=== PATIENT | male | born 1945 | race Caucasian/White ===

== ENCOUNTER 2016-04-01 07:53 | Day surgery (SDC) | payer MEDICARE, OTHER ==
[2016-04-01] MEDS ORDERED: LACTATED RINGERS 1,000 ML IV ONE (08:19)
[2016-04-01] MEDS ORDERED: fentaNYL 250 MCG/5 ML VIAL IVP ONE (08:58)
[2016-04-01] MEDS ORDERED: MIDAZOLAM 2 MG/2 ML VIAL IVP ONE (08:58)
[2016-04-01] MEDS ORDERED: SIMETHICONE 40 MG/0.6 ML 30 ML BOTTLE PO ONE (08:59)
== END 2016-04-01 07:54 | disposition home or self-care (01) ==
PROC: 0DJD8ZZ Inspection of Lower Intestinal Tract, Via Natural or Artificial Opening Endoscopic (ICD-10-PCS; principal; 2016-04-01 09:15)
DX: Z12.11 Encounter for screening for malignant neoplasm of colon (principal); Z79.82 Long term (current) use of aspirin; K64.8 Other hemorrhoids; K57.30 Diverticulosis of large intestine without perforation or abscess without bleeding; E78.5 Hyperlipidemia, unspecified; I10 Essential (primary) hypertension; Z87.891 Personal history of nicotine dependence
CPT/HCPCS: A9270; G0121; J3010; J7120

== ENCOUNTER 2016-05-31 17:54 | Emergency (ER) | payer MEDICARE, OTHER ==
[2016-05-31] MEDS ORDERED: oxyCOD/ACETAMIN 5 MG/325 MG TABLET PO STA (18:50)
[2016-05-31] MEDS ORDERED: oxyCOD/ACETAMIN 5 MG/325 MG TABLET PO ONE (19:22)
[2016-05-31] MEDS ORDERED: HYDROcod/ACET 5/325 Prepack 6 PO STA (20:08)
[2016-05-31] MEDS ORDERED: ONDANSETRON ODT 4 MG Prepack 2 TL PRN (20:08)
[2016-05-31] MEDS ORDERED: ONDANSETRON ODT 4 MG Prepack 2 TL ONE (20:15)
[2016-05-31] MEDS ORDERED: HYDROcod/ACET 5/325 Prepack 6 PO ONE (20:15)
== END 2016-05-31 21:27 | disposition home or self-care (01) ==
DX: S82.832A Other fracture of upper and lower end of left fibula, initial encounter for closed fracture (principal); S82.392A Other fracture of lower end of left tibia, initial encounter for closed fracture; W01.198A Fall on same level from slipping, tripping and stumbling with subsequent striking against other object, initial encounter; Y92.89 Other specified places as the place of occurrence of the external cause; R03.0 Elevated blood-pressure reading, without diagnosis of hypertension; I10 Essential (primary) hypertension; E78.5 Hyperlipidemia, unspecified; Z79.82 Long term (current) use of aspirin
CPT/HCPCS: 29505; 73590; 99283; 99284; A9270

== ENCOUNTER 2016-06-07 06:05 | Day surgery (SDC) | payer MEDICARE, OTHER ==
[2016-06-07] MEDS ORDERED: LACTATED RINGERS 1,000 ML IV ONE (06:56)
[2016-06-07] MEDS ORDERED: ceFAZolin 2 GM/50 ML 50 ML IV ONE (07:04)
[2016-06-07] MEDS ORDERED: KETAMINE 500 MG/10 ML VIAL IVP ONE (08:30)
[2016-06-07] MEDS ORDERED: GLYCOPYRROLATE 1 MG/5 ML VIAL IVP ONE (08:30)
[2016-06-07] MEDS ORDERED: MIDAZOLAM 2 MG/2 ML VIAL IVP ONE (08:30)
[2016-06-07] MEDS ORDERED: ePHEDrine 50 MG/ML VIAL IVP ONE (08:30)
[2016-06-07] MEDS ORDERED: DEXAMETHASONE 4 MG/ML VIAL IVP ONE (08:30)
[2016-06-07] MEDS ORDERED: fentaNYL 100 MCG/2 ML VIAL IVP ONE (08:30)
[2016-06-07] MEDS ORDERED: ONDANSETRON 4 MG/2 ML VIAL IVP ONE (08:30)
[2016-06-07] MEDS ORDERED: PROPOFOL 200 MG/20 ML VIAL IVP ONE (08:30)
[2016-06-07] MEDS ORDERED: PHENYLEPHRINE 50 MG/5 ML VIAL IV ONE (08:30)
[2016-06-07] MEDS ORDERED: LIDOCAINE-MPF 2% 5 ML VIAL IM ONE (08:30)
[2016-06-07] MEDS ORDERED: BUPIVACAINE 0.25%-EPI 1:200000 PF 10 ML VIAL SUBQ ONE ×2 (09:14→10:30)
--- NOTE | 2016-06-07 11:14 | XRAY Report ---
INTRAOPERATIVE LEFT LOWER LE06/07/2016 CLINICAL INDICATION: Fracture fixation. FINDINGS: Intraoperative imaging demonstrates sideplate and screw fixation of the spiral fracture of the distal tibia, with improved alignment. 39 seconds of fluoroscopy time was provided to Dr. Harvey; 4 spot images obtained. IMPRESSION: INTRAOPERATIVE IMAGING OF LEFT TIBIAL FRACTURE FIXATION. JOB #: [id number] EXT JOB #:[id number]
[2016-06-07 13:13] VITALS: BP 144/77
--- NOTE | 2016-06-09 10:13 | XRAY Report ---
C-[facility] SERVICES: 06/07/2016 Fluoroscopy time only, no images submitted for interpretation. Fluoroscopy time 0 minutes, 39 seconds. [facility]
--- NOTE | 2016-06-25 18:14 | OPERATIVE REPORT ---
DATE OF SURGERY: 06/07/2016 00:00:00 PREOPERATIVE DIAGNOSIS: Left distal tibia/fibula fracture, closed, displaced. POSTOPERATIVE DIAGNOSIS: Left distal tibia/fibula fracture, closed, displaced. NAME OF PROCEDURE: Open reduction and internal fixation (minimally invasive percutaneous osteosynthe sis) of a left distal tibia fracture. SURGEON: Joe Harvey MD. NEWS ANCHOR: None. ANESTHESIA: General endotracheal. SPONGE AND NEEDLE COUNTS: Correct. MATERIAL TO LABORATORY: None. FINDINGS: Same. FLUIDS: 1000 mL of lactated Ringer's. COMPLICATIONS: None. TOURNIQUET: Left thigh at 275 mmHg x110 minutes without complication. ESTIMATED BLOOD LOSS: 20 mL. SPECIMEN REMOVED AND CULTURES: None. DISPOSITION: PACU, then home. CONDITION AT THE END OF PROCEDURE: Stable. IMPLANTS: Agueda distal medial locking plate with appropriate screws. INDICATIONS: The patient is a 70-year-old very active male who sustained a comminuted left distal tib ia and associated Maisonneuve type fracture of the proximal fibula when he tripped and fell on a kassy ler hitch on his boat, catching his leg between the trailer hitch spars, causing a bending moment to his leg resulting in a fracture. He was brought to the emergency room, where radiographs revealed a c omminuted distal tibia fracture with an associated proximal fibular fracture. He was placed in a long leg stirrup splint and told to go home and elevate and ice his leg and was referred to the orthopedi c surgery clinic. On evaluation in the clinic, he was noted to have an operative distal tibia fractur e. We discussed options including attempt at intramedullary nailing, but because of the comminution e xtending almost down to the ankle joint, we felt that it was more appropriate to attempt a minimally invasive percutaneous osteosynthesis with a medial plate. This was discussed extensively with the melissa carbone and his . He agreed to surgery. PROCEDURE IN DETAIL: After consent and identification, the patient was brought to the operating room and placed in the supine position on the operating table. After induction of a general endotracheal a nesthesia and appropriate monitoring, the left lower extremity was placed on a bone foam bump. The bu mp was placed underneath the left hip to internally rotate the leg slightly. A padded tourniquet was placed to the proximal left thigh. The left lower extremity was then prepped and draped in the usual sterile fashion for lower extremity surgery. After an appropriate timeout was conducted, we mapped out a medial incision at the level of the media l malleolus, extending from 2 cm distal to the tip of the medial malleolus, proximally a total of 8 c m. This allowed exposure of the distal tibia at the level of the medius malleolus with digital explor ation able to palpate the tip of the fracture. Under fluoroscopic guidance, we made a percutaneous st ab wound with a #15 blade scalpel at the level of the proximal portion of the spiral fracture and use d a Sanchez [id number] clamp to effect a reduction. We then used a periosteal elevator to create a tunnel underneath the periosteum on the medial side of the tibia to create a channel for the long ske letal fixation locking plate. This plate was slid up along the medial side of the tibia. The position was verified with AP and lateral fluoroscopy. AP and lateral fluoroscopy was then used to guide the placement of a single screw through a stab woun d in the middle of the plate to hold the shaft fragment near the plate. A single 3.5 cortical screw w as placed at that level in a lag technique. Verifying that the reduction was adequate on both the AP and lateral planes, we then used the inserti on towers to place a total of 5 locking screws in the distal portion of the plate proximal to the ginger nt line. A fixed screw was placed just proximal to the We then placed a single locking screw across the spiral portion of the fracture in a lag technique. Widely spaced screws were then applied to the proximal portion of the plate x3. Stab wounds were used for the insertion of these screws. On completion of our fixation, the wounds were thoroughly irrigated. Wounds were closed with interrup nereyda 2-0 Vicryl subcuticular sutures. Running 3-0 Monocryl sutures were used to the dermis. Incision s ites were injected with a total of 10 mL of 0.5% Marcaine with epinephrine. Steri-Strips and Mastisol were applied followed by Xeroform gauze and a circumferential sterile dressing of 4 x 4's, cast padd ing and Ruperto bandage from the toes to the knee. On completion of the procedure, the patient was placed in a Cam boot. The tourniquet was deflated without complication. The patient was then extubated and transferred to the recovery room in good condition having tolerate d the procedure well. JOB #: [id number] EXT JOB #:[id number]
== END 2016-06-07 06:06 | disposition home or self-care (01) ==
LOC: SDS 06:05
PROVIDERS: ATTEND Orthopaedic Surgery
PROC: 0QSH04Z Reposition Left Tibia with Internal Fixation Device, Open Approach (ICD-10-PCS; principal; 2016-06-07 07:30)
DX: S82.232A Displaced oblique fracture of shaft of left tibia, initial encounter for closed fracture (principal); S82.832A Other fracture of upper and lower end of left fibula, initial encounter for closed fracture; Z87.891 Personal history of nicotine dependence; I10 Essential (primary) hypertension; I49.9 Cardiac arrhythmia, unspecified
CPT/HCPCS: 27827; 73590; J0690; J7120

== ENCOUNTER 2016-07-20 09:14 | Emergency (ER) | payer MEDICARE, OTHER ==
--- NOTE | 2016-07-20 09:43 | ED Physician Documentation ---
History of Present Illness - Stated complaint Stated Complaint: KNEE SWELLING,REDNESS,PAIN - Chief complaint Chief Complaint: Ext Problem - Additonal information Additional information: hx from pt very healthy 70 male had ortho surgery proximal tibia 5/2 recovered well, had a fracture blister which was treated with topical antibiotic and seemed to heal 3 days ago noticed small amt eyrthema to medial leg over incision seen by Dr Harvey, rec NSAIDS and close observation redness and swelling are much worse and he is having inc pain as well as chills and sweats Review of Systems Constitutional: reports: Chills, Sweats Cardiac: denies: Chest pain / pressure Respiratory: denies: Dyspnea, Cough GI: denies: Abdominal Pain Skin: reports: Rash Musculoskeletal: reports: Extremity pain, Extremity swelling Endocrine: denies: Easy bruising / bleeding Immunocompromised: denies: Immunocompromised PD PAST MEDICAL HISTORY - Past Medical History Cardiovascular: Hypertension, High cholesterol Respiratory: None Endocrine/Autoimmune: None GI: Other : None HEENT: None Psych: None Musculoskeletal: None Derm: None - Past Surgical History General: Cholecystectomy, Colonoscopy, Other Ortho: Hip replacement - Present Medications Home Medications: Ambulatory Orders Medication Instructions Recorded Confirmed Aspirin [Aspir-Low] 81 mg PO DAILY 04/01/16 07/20/16 Hydrochlorothiazide 25 mg PO DAILY 06/06/16 07/20/16 Telmisartan [Micardis] 80 mg PO DAILY 06/06/16 07/20/16 Cephalexin [Keflex] 500 mg PO Q6H #28 capsule 07/20/16 Sulfamethox/Trimeth 800/160 1 each PO BID #14 tablet 07/20/16 [Bactrim Ds 800/160] amLODIPine [Norvasc] 10 mg PO DAILY 07/20/16 07/20/16 - Allergies Allergies/Adverse Reactions: Allergies Allergy/AdvReac Type Severity Reaction Status Date / Time No Known Drug Allergies Allergy Verified 07/20/16 09:20 - Social History Does the pt smoke?: No Smoking Status: Never smoker PD ED PE NORMAL - Vitals Vital signs reviewed: Yes (tachy) - General General: Alert and oriented X 3 - Neck Neck: Supple, no meningeal sign - Cardiac Cardiac: RRR - Respiratory Respiratory: No respiratory distress, Clear bilaterally - Extremities Extremities: Other (LLE surigcial incision to medial lower leg, eryteha and edema and TTP surrounding incision, no specific calf TTP, no dehisc or dicharge , no bullae necrosis or crepitus, MSV intact) - Neuro Neuro: Alert and oriented X 3, No motor deficit, No sensory deficit Results - Vitals Vitals: Vital Signs - 24 hr 07/20/16 07/20/16 09:18 12:12 Temperature 36.3 C L 37.0 C Heart Rate 113 H 67 Respiratory 18 18 Rate Blood Pressure 153/101 H 126/77 O2 Saturation 97 95 Oxygen O2 Source Room air - Labs Labs: Laboratory Tests 07/20/16 07/20/16 07/20/16 10:01 10:01 10:01 WBC 8.9 RBC 4.59 L Hgb 14.1 Hct 41.0 L MCV 89.3 MCH 30.8 MCHC 34.5 RDW 13.2 Plt Count 240 MPV 7.3 L Neut # 6.9 H Lymph # 1.1 L [place] # 0.7 Eos # 0.1 Baso # 0.1 Absolute Nucleated RBC 0.00 Nucleated RBCs 0.0 ESR Sodium 139 Potassium 3.8 Chloride 98 L Carbon Dioxide 28 Anion Gap 13.0 BUN 16 Creatinine 0.8 Estimated GFR (MDRD) 96 Glucose 117 H Lactic Acid 1.0 Calcium 9.7 C-Reactive Protein 11.5 H 07/20/16 10:01 WBC RBC Hgb Hct MCV MCH MCHC RDW Plt Count MPV Neut # Lymph # [place] # Eos # Baso # Absolute Nucleated RBC Nucleated RBCs ESR 38 H Sodium Potassium Chloride Carbon Dioxide Anion Gap BUN Creatinine Estimated GFR (MDRD) Glucose Lactic Acid Calcium C-Reactive Protein - Rads (name of study) doppler Radiology: See rad report (no DVT) RLE Radiology: See rad report (subcut edema, trace fluid, no discreet fluid collection, no gas) PD MEDICAL DECISION MAKING - ED course ED course: d/w pts weapons specialist Dr Harvey who recommends dc on keflex and bactrim and he will see pt in clinic on Friday Departure - Departure Disposition: Home, Self Care Clinical Impression: Cellulitis of left anterior lower leg Condition: Good Instructions: ED Infec Skin Cellulitis Follow-Up: Joe Harvey MD [Provider Admit Priv/Credential] - Prescriptions: Sulfamethox/Trimeth 800/160 [Bactrim Ds 800/160] 1 each PO BID #14 tablet Cephalexin [Keflex] 500 mg PO Q6H #28 capsule Comments: Please come back and see me tomorrow to recheck both the infection and the chemistry labs Dr Harvey wants you on the antibiotic bactrim but it can potentially interact with your blood pressure medication and cause high potassium levels - so i would like you to hold your Micardis while you are taking the Bactrim and I would like to recheck you tomorrow - hopefully it will be a much faster visit than today Otherwise Dr Harvey will see you on Friday for a recheck And if at any point you get worse (fevers, expanding redness, increasing pain) please come back to the ER right away
[2016-07-20] MEDS ORDERED: ceFAZolin 1 GM in SODIUM CHLORIDE 0.9% MINIBAG 100 ML IV STA (10:03)
[2016-07-20 10:13] LABS: BASOPHILS # (AUTO) 0.1 10^3/uL (0.0-0.1); BASOPHILS % (AUTO) 0.7 %; EOSINOPHILS # (AUTO) 0.1 10^3/uL (0.0-0.7); EOSINOPHILS % (AUTO) 1.6 %; HGB - HEMOGLOBIN 14.1 g/dL (14.0-18.0); LYMPHOCYTES # (AUTO) 1.1 10^3/uL (1.5-3.5); LYMPHOCYTES % (AUTO) 11.9 %; MEAN CORPUSCULAR HEMOGLOBIN 30.8 pg (27.0-31.0); MEAN CORPUSCULAR HGB CONC 34.5 g/dL (32.0-36.0); MEAN CORPUSCULAR VOLUME 89.3 fL (80.0-94.0); MEAN PLATELET VOLUME 7.3 fL (7.4-11.4); MONOCYTES # (AUTO) 0.7 10^3/uL (0.0-1.0); MONOCYTES % (AUTO) 7.6 %; NEUTROPHILS # (AUTO) 6.9 10^3/uL (1.5-6.6); NEUTROPHILS % (AUTO) 78.2 %; RED BLOOD COUNT 4.59 10^6/uL (4.70-6.10); RED CELL DISTRIBUTION WIDTH 13.2 % (12.0-15.0); UNCORRECTED WHITE BLOOD COUNT 8.9 x10^3/uL; WHITE BLOOD COUNT 8.9 x10^3/uL (4.8-10.8)
[2016-07-20 10:26] LABS: CALCIUM 9.7 mg/dL (8.5-10.3); CREATININE 0.8 mg/dL (0.6-1.2); POTASSIUM 3.8 mmol/L (3.5-5.0)
[2016-07-20] MEDS ORDERED: ceFAZolin 1 GM VIAL ONE (10:31)
--- NOTE | 2016-07-20 12:25 | Ultrasound Preliminary Report ---
Exam: US Duplex Ext Veins Left IMPRESSION: No sonographic evidence of DVT within the left lower extremity. [facility] SITE ID: [id number]
--- NOTE | 2016-07-20 12:27 | Ultrasound Preliminary Report ---
Exam: US Ext Limited Non Vascular IMPRESSION: 1. Subcutaneous soft tissue edema and trace fluid is noted with no discrete fluid collection. [facility] SITE ID: [id number]
--- NOTE | 2016-07-20 12:27 | Ultrasound Report ---
EXAM: LEFT LOWER EXTREMITY VENOUS ULTRASOUND EXAM DATE: 07/20/2016 11:07 AM. CLINICAL HISTORY: Post op redness and swelling. COMPARISON: None. TECHNIQUE: Real-time sonographic vascular imaging was performed by the tour coordinator through the lower extremity utilizing both color-flow and Doppler spectral analysis. Multiple in store marketing representative static johnny ges were saved for review. FINDINGS: Common Femoral Vein (CFV): Normal. CFV-GSV Junction: Normal. Profunda Femoral Vein (PFV): Normal. Femoral Vein (FV) Prox: Normal. Femoral Vein (FV) Mid: Normal. Femoral Vein (FV) Dist: Normal. Popliteal Vein: Normal. Posterior Tibial Veins: Normal. Peroneal Veins: Normal. Other: None. IMPRESSION: No sonographic evidence of DVT within the left lower extremity. [facility] Referring Provider Line: [phone] SITE ID: [id number]
--- NOTE | 2016-07-20 12:29 | Ultrasound Report ---
EXAM: LEFT LOWER EXTREMITY ULTRASOUND - LIMITED EXAM DATE: 07/20/2016 11:24 AM. CLINICAL HISTORY: Post op rednes and swelling. COMPARISON: None. TECHNIQUE: Real-time scanning was performed with static images obtained. FINDINGS: Subcutaneous soft tissue edema and trace fluid noted. No discrete fluid collection is visua lized. Underlying surgical hardware is noted. IMPRESSION: 1. Subcutaneous soft tissue edema and trace fluid is noted with no discrete fluid collection. [facility] Referring Provider Line: [phone] SITE ID: [id number]
[2016-07-20 13:37] VITALS: BP 122/79
== END 2016-07-20 13:21 | disposition home or self-care (01) ==
LOC: ED 09:14
DX: L03.116 Cellulitis of left lower limb (principal); Z98.890 Other specified postprocedural states; I10 Essential (primary) hypertension
CPT/HCPCS: 36415; 76882; 80048; 83605; 85025; 85651; 86140; 87040; 96365; 99283; 99284

== ENCOUNTER 2016-07-21 09:19 | Inpatient (IN) | payer MEDICARE, OTHER ==
[2016-07-21 10:44] LABS: POTASSIUM 4.2 mmol/L (3.5-5.0)
--- NOTE | 2016-07-21 10:49 | ED Physician Documentation ---
History of Present Illness - Stated complaint Stated Complaint: SURGICAL SITE RE-CHECK - Chief complaint Chief Complaint: Wound - Additonal information Additional information: hx from pt 70 male s/p tibia fx surgery L leg Dr Harvey approx 4 days ago started to develop redness,, more severe yesterday seen in ER given IV ancef, d/w Dr Harvey who rec dc on bactrim and keflex, was some concern re bactrim interacting with micardis so held micardis and asked pt to return today for wound check and rpt chem he says he is not much improved - no sweats but otherwise pain and redness have not improved Review of Systems Constitutional: denies: Fever Skin: reports: Rash PD PAST MEDICAL HISTORY - Past Medical History Cardiovascular: Hypertension, High cholesterol Respiratory: None Endocrine/Autoimmune: None GI: Other : None HEENT: None Psych: None Musculoskeletal: None Derm: None - Past Surgical History General: Cholecystectomy, Colonoscopy, Other Ortho: Hip replacement - Present Medications Home Medications: Ambulatory Orders Medication Instructions Recorded Confirmed Aspirin [Aspir-Low] 81 mg PO DAILY 04/01/16 07/21/16 Hydrochlorothiazide 25 mg PO DAILY 06/06/16 07/21/16 Telmisartan [Micardis] 80 mg PO DAILY 06/06/16 07/21/16 Cephalexin [Keflex] 500 mg PO Q6H #28 capsule 07/20/16 07/21/16 Sulfamethox/Trimeth 800/160 1 each PO BID #14 tablet 07/20/16 07/21/16 [Bactrim Ds 800/160] amLODIPine [Norvasc] 10 mg PO DAILY 07/20/16 07/21/16 - Allergies Allergies/Adverse Reactions: Allergies Allergy/AdvReac Type Severity Reaction Status Date / Time No Known Drug Allergies Allergy Verified 07/21/16 09:23 - Social History Does the pt smoke?: No Smoking Status: Never smoker PD ED PE NORMAL - Vitals Vital signs reviewed: Yes - Cardiac Cardiac: RRR - Respiratory Respiratory: No respiratory distress, Clear bilaterally - Derm Derm: Other (arythema is alsihgtly spread from yesterday, more beefy angry red, no streaking, no creitus dehisc necorsis or bullae, MSV intact) Results - Vitals Vitals: Vital Signs - 24 hr 07/21/16 09:21 Temperature 36.5 C Heart Rate 98 Respiratory 18 Rate Blood Pressure 131/74 H O2 Saturation 99 Oxygen O2 Source Room air - Labs Labs: Laboratory Tests 07/21/16 10:23 Potassium 4.2 Creatinine 1.0 Estimated GFR (MDRD) 74 L PD MEDICAL DECISION MAKING - ED course ED course: GFR has dropped sig and K up a bit after one day of bactrim - pt will not be able to safely take that medication seen by Dr Wes velasco who will admit inpt for IV antibiotics and I&D, Dr Harvey req pt be given ancef and vanc Departure - Departure Disposition: [facility] DC/Xfer Clinical Impression: Cellulitis of left anterior lower leg Post op infection Qualifiers: Encounter type: subsequent encounter Qualified Code(s): T81.4XXD - Infection following a procedure, subsequent encounter Condition: Good Comments: Stop the bactrim - it is affecting your kidneys and potassium levels - the levels are not dangerous now but there was a change from your baseline values and I don't think it is safe to continue that medication nor do i recommend you take it in the future
[2016-07-21] MEDS ORDERED: ceFAZolin 2 GM/50 ML 50 ML IV ONE ×2 (12:10→12:41)
[2016-07-21] MEDS ORDERED: VANCOMYCIN INJ 1 GM in SODIUM CHLORIDE 0.9% 250 ML IV STA (12:10)
[2016-07-21] MEDS ORDERED: ceFAZolin 1 GM VIAL ONE (12:34)
--- NOTE | 2016-07-21 13:18 | HISTORY & PHYSICAL EXAMINATION ---
HPI - Admitted From Admitted from: ED (Requested to see this otherwise healthy 70 yo male who I had operated on on 06/11/2016 with ORIF (MIPO) of Left distal Tibia spiral fracture. He had done well for the intervening 5 1/2 weeks until presenting to clinic on with 24 hours of redness, pain & swelling about Left ankle. Seen in ED yesterday and started on Bactrim but no improvement overnight. Now with continued redness, pain, and swelling. Ultrasound shows no fluid collection, no DVT.) - History Obtained From Records Reviewed: Old records reviewed History obtained from: Patient, Family Exam limitations: No limitations - History of Present Illness Severity at the worst: reports: Moderate Pain Quality: reports: Sharp Context-Pain started w/: reports: Exertion, Movement, Position Timing: reports: Gradual onset Duration: reports: Days: (5) Improved with: reports: Rest, Other (Analgesics, elevation.) Worsened by: reports: Exertion, Movement, Other (Dependancy.) Associated symptoms: reports: Other (Chills, Fevers.). denies: Shortness of air PMH/PSH - Past Medical History Cardiovascular: positive: Hypertension, High cholesterol Respiratory: positive: None Endocrine/Autoimmune: positive: None GI: positive: Other : positive: None HEENT: positive: None Psych: positive: None Musculoskeletal: positive: None Derm: positive: None MRSA Hx?: No - Past Surgical History General: positive: Cholecystectomy, Colonoscopy, Other Ortho: positive: Hip replacement Social & Family Hx - Living Situation Living Arrangement: At home Living Situation: With spouse/s.o. - Social History Does the pt smoke?: No Smoking Status: Never smoker Does the pt have substance abuse?: No - POLST Patient has POLST: Yes POLST Status: Full Code Meds/Allgy - Home Medications Home Medications: Ambulatory Orders Medication Instructions Recorded Confirmed Aspirin [Aspir-Low] 81 mg PO DAILY 04/01/16 07/21/16 Hydrochlorothiazide 25 mg PO DAILY 06/06/16 07/21/16 Telmisartan [Micardis] 80 mg PO DAILY 06/06/16 07/21/16 Cephalexin [Keflex] 500 mg PO Q6H #28 capsule 07/20/16 07/21/16 Sulfamethox/Trimeth 800/160 1 each PO BID #14 tablet 07/20/16 07/21/16 [Bactrim Ds 800/160] amLODIPine [Norvasc] 10 mg PO DAILY 07/20/16 07/21/16 - Allergies Allergies/Adverse Reactions: Allergies Allergy/AdvReac Type Severity Reaction Status Date / Time No Known Drug Allergies Allergy Verified 07/21/16 09:23 Review of Systems - All Other Systems All Other Systems: reports: Reviewed and negative Exam - Vital Signs Reviewed Vital Signs: Yes Vital Signs: Vital Signs x48h Temp Pulse Resp BP Pulse Ox 07/21/16 09:21 36.5 C 98 18 131/74 H 99 - Physical Exam General Appearance: positive: No acute distress, Alert Eyes Bilateral: positive: Normal inspection ENT: positive: ENT inspection nml Neck: positive: Nml inspection Respiratory: positive: No respiratory distress, Breath sounds nml Cardiovascular: positive: Regular rate & rhythm Peripheral Pulses: positive: 2+ Abdomen: positive: Non-tender, Nml bowel sounds, No distention. negative: Guarding Back: positive: Nml inspection Skin: positive: Color nml, No rash, Warm, Dry Extremities: positive: Other (Circumferential erythema with mild edema but no fluctuance from mid calf to ankle. Foot with increased erythema but minimal tenderness.). negative: Calf tenderness, Yunior's sign/cords Results - Lab Results Lab results reviewed: Yes Fish Bones: 07/21/16 10:23 Other Lab Results: Lab Results x24hrs 07/21/16 Range/Units 10:23 Potassium 4.2 (3.5-5.0) mmol/L Creatinine 1.0 (0.6-1.2) mg/dL Estimated GFR (MDRD) 74 L (>89) - Diagnostic Imaging Results Diagnostic Imaging Results: positive: Final report reviewed Impression/Plan - Problem List Problem List: Cellulitis Left Lower Leg after ORIF for Tibia Fracture. Plan; 1. Admit for IV antibiotics. 2. Plan for I&D of Left Lower Leg tomorrow if no improvement. 3. Consult Pharmacist for appropriate broad spectrum coverage compatible with current meds.
[2016-07-21] MEDS ORDERED: VANCOMYCIN 1 GM VIAL ONE (13:19)
[2016-07-21] MEDS ORDERED: SODIUM CHLORIDE FLUSH 0.9% 10 ML SYRINGE IVP PRN (13:42)
[2016-07-21] MEDS ORDERED: ACETAMINOPHEN 1,000 MG/100 ML 100 ML IV PRN (13:58)
[2016-07-21] MEDS ORDERED: ACETAMINOPHEN 325 MG TABLET PO PRN (14:01)
[2016-07-21] MEDS ORDERED: VANCOMYCIN PER PHARMACY 1 GM in SODIUM CHLORIDE 0.9% 250 ML IV SCH (15:00)
[2016-07-21] MEDS: traMADol 50 MG TABLET PO PRN ×2 (15:37→22:03)
--- NOTE | 2016-07-21 15:38 | CONSULTATION NOTE ---
DATE OF CONSULTATION: 07/21/2016 REQUESTING PROVIDER: Joe Harvey MD PATIENT'S PRIMARY CARE PHYSICIAN: Polo Hagen MD CONSULTING PHYSICIAN: Joe Harvey MD REASON FOR CONSULTATION: Medical management of deep tissue infection and antibiotic use. Service requesting consultation, Orthopedics, Dr. Vinicio Harvey. CONSULTING SERVICE: Hospitalist, Dmitry Harvey MD. BRIEF HISTORY: The patient is a 70-year-old male who on 06/11/2016 went through an ORIF of a left distal tibia spiral fracture, had done well in intervening 5-1 /2 weeks until presenting to the clinic on 07/17/2016 with 24 hours of redness, left ankle and the above the heel, Achilles, with increasing swelling and pain. The patient was seen in the emergency department on Friday and started on Keflex and Bactrim and now has continued redness and swelling. The patient has already had an outpatient ultrasound, which showed no fluid collection and no DVT. REVIEW OF SYSTEMS: The patient denies any fever or chills. There is no sore throat, cough. No nausea, vomiting, diarrhea. Has hesitancy and frequency of urination, which is chronic. The patient's rest of the complete review of systems is negative as queried except as noted in the HPI. PAST MEDICAL HISTORY: Remarkable for hypertension, high cholesterol. PAST SURGICAL HISTORY: Cholecystectomy, colonoscopy, hip replacement and the plating of his left tibia. PERSONAL AND SOCIAL HISTORY: The patient was born and raised in [place] until he was 20, went in the service, i.e., the [employer], had a career in the [employer]. 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 Patient is . He smoked and quit approximately 28 years ago. Occasional alcohol use. No illicit drug use. The patient has been on [facility] since before his skilled nursing. ALLERGIES: NONE KNOWN. MEDICATIONS 1. Aspirin 81 mg a day. 2. Hydrochlorothiazide 25 mg a day. 3. Micardis 80 mg a day. 4. Short-term Keflex and Septra. 5. He also takes Norvasc 10 mg a day. FAMILY HISTORY: Positive for heart disease. Negative for diabetes and positive for cancer in his mother, but he does not know what kind it is other than she had liver cancer, unknown if that was primary or metastatic. PHYSICAL EXAMINATION GENERAL: The patient is a well-developed, well-nourished male, appears in no acute distress. VITAL SIGNS: 36.5, 98, 18, 131/74, O2 saturation is 99% on room air. EYES: EOMs within normal limits. PERRL. Nonicteric. MOUTH AND THROAT: Moist mucous membranes. No other pathology noted. Good dentition. NECK: Supple. Nontender. No lymphadenopathy. No thyromegaly. No JVD. No bruits. No tracheal deviation. CHEST WALL: Nontender. Symmetric. HEART: Sinus rhythm, no murmur, rubs, clicks heard. LUNGS: Clear, good air movement in all quadrants. ABDOMEN: Soft, nontender, normal bowel sounds. No hepatosplenomegaly. RECTAL/GENITAL: Exam is not done. EXTREMITIES: The right lower extremity has no tenderness to palpation, no swelling, no redness. Left lower extremity has no tenderness of the thigh anterior, posterior or the popliteal space. The patient has a scar on the medial aspect of the lower 3/4 of the tibia medially. The patient has erythema along the incision site. No apparent blistering. Fluid collection superficially , also see ultrasound report. The patient has swelling of the tissues distally, lower tibia and ankle medially, also has swelling and tenderness along the Achilles. NEUROLOGIC: Cognitive intact. Cranial nerves intact. Motor intact. The patient' s feet noticed to have some swelling, erythema, blotchy, but even at the base of the toes. He has onychomycosis extensively in the left foot, R foot is covered with a boot. DIAGNOSTIC DATA: On 07/20/2016, the patient had a white count of 8.9, hemoglobin and hematocrit 14 and 41, platelets 240. The patient's ESR was 38. The patient's sodium 139, potassium 4.2, chloride 98, CO2 of 28, BUN 16, creatinine is 1.0, glucose 117. The patient's lactate 1.0. Calcium 9.7. Bilirubin was slightly elevated at 1.4. Normal liver enzymes. Albumin is 4.3. C- reactive protein is 11.5. Triglycerides 84 three years ago. Cholesterol 185, LDL cholesterol 98, HDL of 70. TSH also 3 years ago was 1.4. SUMMARY: This is a 70-year-old male with a history of hypertension, an open reduction internal fixation on 06/11/2016 has now developed an infection of the left leg along the incision line and distal. The patient has failed outpatient antibiotics. PLAN: Is to put him in the hospital for IV antibiotics and possible surgical exploration. DIAGNOSES 1. Deep tissue infection, status post open reduction internal fixation, left tibia. 2. Hypertension. 3. Hypercholesteremia. DISCUSSION/DECISION MAKING 1. Deep tissue infection needs to be covered with broad spectrum antibiotics. He has already gotten vancomycin and Ancef. Will be continued on the vancomycin and change to Zosyn. The patient is also to elevate and put heat on the infection site. 2. The patient's hypertension will be treated with monitoring and restarting his usual medications. 3. Hypercholesteremia will not have any further attention. 4. The patient's recommendation is to continue the antibiotics as noted above and to conduct an incision and drainage if there is no improvement. The patient does note that he had no worsening of his redness, swelling and pain from yesterday to today, but he has decidedly had no improvement. The Hospitalist service will continue to follow this gentleman and appreciates the opportunity to participate in consultive care. JOB #: [id number] EXT JOB #:[id number] RADHA
[2016-07-21] MEDS: SODIUM CHLORIDE FLUSH 0.9% 10 ML SYRINGE IVP SCH ×2 (15:58→22:08)
[2016-07-21] MEDS: PIPERACILLIN/TAZOBACTAM 4.5 GM in SODIUM CHLORIDE 0.9% MINIBAG 100 ML IV SCH ×2 (16:02→22:04)
[2016-07-21] MEDS: D5.45NS W/20 MEQ KCL 1,000 ML IV SCH (16:03)
[2016-07-22] MEDS: VANCOMYCIN INJ 1 GM, VANCOMYCIN INJ 500 MG in SODIUM CHLORIDE 0.9% 500 ML IV SCH ×3 (01:12→23:55)
[2016-07-22] MEDS: traMADol 50 MG TABLET PO PRN ×2 (03:38→16:29)
[2016-07-22] MEDS: PIPERACILLIN/TAZOBACTAM 4.5 GM in SODIUM CHLORIDE 0.9% MINIBAG 100 ML IV SCH ×4 (03:40→22:11)
[2016-07-22 05:46] LABS: BASOPHILS # (AUTO) 0.1 10^3/uL (0.0-0.1); BASOPHILS % (AUTO) 0.8 %; EOSINOPHILS # (AUTO) 0.2 10^3/uL (0.0-0.7); EOSINOPHILS % (AUTO) 2.5 %; HCT - HEMATOCRIT 35.6 % (42.0-52.0); LYMPHOCYTES % (AUTO) 11.3 %; MEAN CORPUSCULAR HEMOGLOBIN 30.7 pg (27.0-31.0); MEAN CORPUSCULAR HGB CONC 33.7 g/dL (32.0-36.0); MEAN CORPUSCULAR VOLUME 91.1 fL (80.0-94.0); MEAN PLATELET VOLUME 7.3 fL (7.4-11.4); MONOCYTES # (AUTO) 0.9 10^3/uL (0.0-1.0); MONOCYTES % (AUTO) 9.7 %; NEUTROPHILS # (AUTO) 6.7 10^3/uL (1.5-6.6); NEUTROPHILS % (AUTO) 75.7 %; RED BLOOD COUNT 3.91 10^6/uL (4.70-6.10); RED CELL DISTRIBUTION WIDTH 13.1 % (12.0-15.0); UNCORRECTED WHITE BLOOD COUNT 8.8 x10^3/uL; WHITE BLOOD COUNT 8.8 x10^3/uL (4.8-10.8)
[2016-07-22 05:52] LABS: CALCIUM 8.5 mg/dL (8.5-10.3); CREATININE 0.9 mg/dL (0.6-1.2); POTASSIUM 3.8 mmol/L (3.5-5.0)
[2016-07-22] MEDS: SODIUM CHLORIDE FLUSH 0.9% 10 ML SYRINGE IVP SCH ×3 (06:52→22:06)
[2016-07-22] MEDS ORDERED: cefTRIAXone 500 MG VIAL IVP SCH (09:00)
[2016-07-22] MEDS: LOSARTAN 50 MG TABLET PO SCH (09:49)
[2016-07-22] MEDS: hydroCHLOROthiazide 25 MG TABLET PO SCH (09:49)
[2016-07-22] MEDS: amLODIPine 5 MG TABLET PO SCH (09:49)
--- NOTE | 2016-07-22 15:18 | PROVIDER PROGRESS NOTE ---
Subjective - Prog Note Date Prog Note Date: 07/22/16 Prog Note Time: 15:16 - Subjective Subjective: leg still throbs if it's dependent but better than yesterday. no new complaints [place] halima Harvey saw him this am and will hold off on surgery. The US was neg and no collection of fluid. Current Medications - Current Medications Current Medications: Active Medications Acetaminophen (Tylenol) 650 mg PO Q6HR PRN PRN Reason: PAIN Acetaminophen/Hydrocodone Bitart ([place] 5/325) 1 tab PO Q4HR PRN PRN Reason: Breakthrough Pain Amlodipine Besylate (Norvasc) 10 mg PO DAILY [facility] Last Admin: 07/22/16 09:49 Dose: 10 mg Hydrochlorothiazide (Hydrodiuril) 25 mg PO DAILY [facility] Last Admin: 07/22/16 09:49 Dose: 25 mg Potassium Chloride/Dextrose/Sod Cl (D5.45ns W/20 Meq Kcl) 1,000 mls @ 0 mls/hr IV .Q0M SANJEEV PRN Reason: TKO Last Admin: 07/21/16 16:03 Dose: 30 mls/hr Acetaminophen (Ofirmev) 100 mls @ 400 mls/hr IV Q6HR PRN PRN Reason: PAIN Piperacillin Sod/Tazobactam (Sod 4.5 gm/ Sodium Chloride) 100 mls @ 200 mls/hr IV Q6H [facility] Last Admin: 07/22/16 09:48 Dose: 200 mls/hr Vancomycin HCl 1 gm/Vancomycin HCl 500 mg/ Sodium Chloride 500 mls @ 250 mls/ hr IV Q12H [facility] Last Admin: 07/22/16 12:13 Dose: 250 mls/hr Losartan Potassium (Cozaar) 100 mg PO DAILY [facility] Last Admin: 07/22/16 09:49 Dose: 100 mg Sodium Chloride (Normal Saline Flush 0.9%) 10 ml IVP PRN PRN PRN Reason: NEEDED PER PROVIDER ORDERS Sodium Chloride (Normal Saline Flush 0.9%) 10 ml IVP Q8HR [facility] Last Admin: 07/22/16 14:22 Dose: Not Given Tramadol HCl (Ultram) 50 mg PO Q4HR PRN PRN Reason: Breakthrough Pain Last Admin: 07/22/16 03:38 Dose: 50 mg Aspirin [Aspir-Low] 81 mg PO DAILY 04/01/16 Hydrochlorothiazide 25 mg PO DAILY 06/06/16 Telmisartan [Micardis] 80 mg PO DAILY 06/06/16 amLODIPine [Norvasc] 10 mg PO DAILY 07/20/16 Objective - Vital Signs/Intake & Output Reviewed Vital Signs: Yes Vital Signs: Vital Signs x48h Temp Pulse Resp BP Pulse Ox 07/22/16 09:21 36.8 C 64 16 118/68 96 Intake & Output: Intake & Output 07/19/16 07/20/16 07/21/16 07/22/16 23:59 23:59 23:59 23:59 Intake Total 870 2093 Output Total 500 Balance 870 1593 - Objective General Appearance: positive: No acute distress, Alert Eyes Bilateral: positive: PERRL ENT: positive: Pharynx nml Neck: positive: No JVD. negative: Stiff neck, Carotid bruit Respiratory: positive: Chest non-tender. negative: Wheezes, Rales, Rhonchi Cardiovascular: positive: Regular rate & rhythm, No murmur. negative: Gallop/S4 , Friction rub Abdomen: positive: Non-tender, No organomegaly. negative: Guarding, Rebound Skin: positive: Color nml (except for left leg), Warm, Dry Extremities: positive: Full ROM, No pedal edema (of unaffected leg), Other ( left medial calf with longitudinal cut, closed and nondraining the length of the calf. redness and warmth of skin of that side of calf to just above medial malleolus skin edematous there as well. Knee is ok, ankle is ok. if flexes and extends foot, the skin and muscle of medial calf hurts.) Neurologic/Psychiatric: positive: Oriented x3, CN's nml (2-12), Motor nml - Lab Results Fish Bones: 07/22/16 05:25 07/22/16 05:25 Other Labs: Lab Results x24hrs 07/22/16 07/22/16 Range/Units 05:25 05:25 WBC 8.8 (4.8-10.8) x10^3/uL RBC 3.91 L (4.70-6.10) 10^6/uL Hgb 12.0 L (14.0-18.0) g/dL Hct 35.6 L (42.0-52.0) % MCV 91.1 (80.0-94.0) fL MCH 30.7 (27.0-31.0) pg MCHC 33.7 (32.0-36.0) g/dL RDW 13.1 (12.0-15.0) % Plt Count 211 (130-450) 10^3/uL MPV 7.3 L (7.4-11.4) fL Neut # 6.7 H (1.5-6.6) 10^3/uL Lymph # 1.0 L (1.5-3.5) 10^3/uL [place] # 0.9 (0.0-1.0) 10^3/uL Eos # 0.2 (0.0-0.7) 10^3/uL Baso # 0.1 (0.0-0.1) 10^3/uL Absolute Nucleated RBC 0.00 x10^3/uL Nucleated RBCs 0.0 /100WBC Sodium 136 (135-145) mmol/L Potassium 3.8 (3.5-5.0) mmol/L Chloride 102 (101-111) mmol/L Carbon Dioxide 27 (21-32) mmol/L Anion Gap 7.0 (6-13) BUN 16 (6-20) mg/dL Creatinine 0.9 (0.6-1.2) mg/dL Estimated GFR (MDRD) 84 L (>89) Glucose 100 (70-100) mg/dL Calcium 8.5 (8.5-10.3) mg/dL Assessment/Plan - Problem List (1) Cellulitis of left anterior lower leg Impression: present on admission failed outpt management Day #2 zosyn and vancomycin after failed ancef/vancomycin doesn't have fever, chills, or elevated WBC Dr. Harvey feels it's much better today. No surgery or I&D If still improving tomorrow, plan for dc tomorrow with oral abx. (2) Post op infection Impression: s/p ORIF 06/11/16 of left leg. 24 hours of redness and swelling on 07/17/16 as above. Qualifiers: Encounter type: subsequent encounter Qualified Code(s): T81.4XXD - Infection following a procedure, subsequent encounter (3) HTN (hypertension) Impression: 118 to 140 systolic. on his usual norvasc, HCTZ and cozaar switched for micardis. controlled no change.
[2016-07-22] MEDS: HYDROcod/ACETAM 5/325 MG TABLET PO PRN (23:54)
[2016-07-23] MEDS: PIPERACILLIN/TAZOBACTAM 4.5 GM in SODIUM CHLORIDE 0.9% MINIBAG 100 ML IV SCH ×4 (04:47→21:34)
[2016-07-23] MEDS: SODIUM CHLORIDE FLUSH 0.9% 10 ML SYRINGE IVP SCH ×3 (05:22→21:34)
[2016-07-23] MEDS: hydroCHLOROthiazide 25 MG TABLET PO SCH (08:54)
[2016-07-23] MEDS: LOSARTAN 50 MG TABLET PO SCH (08:54)
[2016-07-23] MEDS: amLODIPine 5 MG TABLET PO SCH (08:54)
[2016-07-23 09:01] LABS: ALBUMIN/GLOBULIN RATIO 0.9 (1.0-2.2); BILIRUBIN,TOTAL 1.3 mg/dL (0.2-1.0); BUN - BLOOD UREA NITROGEN 12 mg/dL (6-20); CARBON DIOXIDE - CO2 28 mmol/L (21-32); CHLORIDE 101 mmol/L (101-111); CREATININE 0.9 mg/dL (0.6-1.2); GFR - MDRD 84 (>89); GLUCOSE 101 mg/dL (70-100); POTASSIUM 3.7 mmol/L (3.5-5.0); SODIUM 138 mmol/L (135-145)
[2016-07-23 10:07] LABS: BASOPHILS # (AUTO) 0.1 10^3/uL (0.0-0.1); EOSINOPHILS # (AUTO) 0.2 10^3/uL (0.0-0.7); EOSINOPHILS % (AUTO) 3.1 %; HCT - HEMATOCRIT 36.2 % (42.0-52.0); HGB - HEMOGLOBIN 12.4 g/dL (14.0-18.0); LYMPHOCYTES # (AUTO) 0.8 10^3/uL (1.5-3.5); LYMPHOCYTES % (AUTO) 10.8 %; MEAN CORPUSCULAR HEMOGLOBIN 30.5 pg (27.0-31.0); MEAN CORPUSCULAR HGB CONC 34.3 g/dL (32.0-36.0); MEAN CORPUSCULAR VOLUME 88.8 fL (80.0-94.0); MEAN PLATELET VOLUME 7.3 fL (7.4-11.4); MONOCYTES # (AUTO) 0.7 10^3/uL (0.0-1.0); MONOCYTES % (AUTO) 9.2 %; NEUTROPHILS % (AUTO) 75.9 %; RED BLOOD COUNT 4.08 10^6/uL (4.70-6.10); UNCORRECTED WHITE BLOOD COUNT 7.9 x10^3/uL; WHITE BLOOD COUNT 7.9 x10^3/uL (4.8-10.8)
[2016-07-23] MEDS: VANCOMYCIN INJ 1 GM, VANCOMYCIN INJ 250 MG in SODIUM CHLORIDE 0.9% 250 ML IV SCH (13:43)
[2016-07-23] MEDS: HYDROcod/ACETAM 5/325 MG TABLET PO PRN ×2 (16:13→23:37)
--- NOTE | 2016-07-23 18:43 | PROVIDER PROGRESS NOTE ---
Assessment/Plan - Problem List (1) Cellulitis of left anterior lower leg Assessment/Plan: present on admission failed outpt management Day #3 zosyn and vancomycin after failed ancef/vancomycin Spiked fever over 39 last night at midnight, WBC stable Dr. Harvey feels it's not any better today. Still no surgery or I&D If not improving tomorrow will likely take to OR for I&D on If improving then will need to decide between PO and IV abx (2) Post op infection Impression: s/p ORIF 06/11/16 of left leg. 24 hours of redness and swelling on 07/17/16 Possible infected hardware Ortho following Qualifiers: Encounter type: subsequent encounter Qualified Code(s): T81.4XXD - Infection following a procedure, subsequent encounter (3) HTN (hypertension) Impression: On his usual norvasc, HCTZ and cozaar switched for micardis. controlled no change. - Current Meds Current Meds: Current Medications Generic Name Dose Route Start Last Admin Trade Name Freq PRN Reason Stop Dose Admin Acetaminophen/Hydrocodone Bitart 1 tab 07/21/16 14:01 07/23/16 16:13 [place] 5/325 PO 1 tab Q4HR PRN Administration Breakthrough Pain Amlodipine Besylate 10 mg 07/22/16 09:00 07/23/16 08:54 Norvasc PO 10 mg DAILY SANJEEV Administration Hydrochlorothiazide 25 mg 07/22/16 09:00 07/23/16 08:54 Hydrodiuril PO 25 mg DAILY SANJEEV Administration Potassium Chloride/Dextrose/Sod Cl 1,000 mls @ 0 mls/hr 07/21/16 14:00 16:03 D5.45ns W/20 Meq Kcl IV 30 mls/hr .Q0M SANJEEV Administration TKO Piperacillin Sod/Tazobactam 100 mls @ 200 mls/hr 07/21/16 16:00 07/23/16 16:14 Sod 4.5 gm/ Sodium Chloride IV 200 mls/hr Q6H SANJEEV Administration Vancomycin HCl 1 gm/ 250 mls @ 167 mls/hr 07/23/16 14:00 07/23/16 13:43 Vancomycin HCl 250 mg/ Sodium IV 167 mls/hr Chloride Q12H SANJEEV Administration Losartan Potassium 100 mg 07/22/16 09:00 07/23/16 08:54 Cozaar PO 100 mg DAILY SANJEEV Administration Sodium Chloride 10 ml 07/21/16 14:00 07/23/16 13:44 Normal Saline Flush 0.9% IVP 10 ml Q8HR SANJEEV Administration Tramadol HCl 50 mg 07/21/16 14:01 07/22/16 16:29 Ultram PO 50 mg Q4HR PRN Administration Breakthrough Pain - Lab Result Lab results reviewed: Yes Fish Bone Diagrams: 07/23/16 08:35 07/23/16 08:35 - EKG Results EKG Interpreted Independently: Yes - Diagnostic Imaging Results Diagnostic Imaging Results: positive: Final report reviewed - Additional Planning Condition/Complexity: Guarded My Orders: My Active Orders 07/24/16 05:00 CBC - COMP BLD CT W/AUTO DIFF [HEME] DAILYLAB CMP, RFLX TO IONIZED CA IF [CHEM] DAILYLAB Consult/Specialty: Other (Ortho) Plan Discussed with:: Patient Time Spent: 31-60 minutes Subjective - Subjective Patient Reports: Other (Had fever last night. COntinues to have redness of the left leg but states he can move it around more and it is not as painful. Denies any nausea or vomiting.) Nursing Reports: No Complaints Objective Vital Signs: Vital Signs - 24 hr 07/23/16 07/23/16 07/23/16 00:56 06:06 08:59 Temperature 39.8 C H 36.9 C 37.0 C Heart Rate [ 68 70 64 Brachial] Respiratory 18 18 18 Rate Blood Pressure [Left Brachial artery] Blood Pressure 137/79 H 120/73 144/68 H [Right Brachial artery] O2 Saturation 98 97 94 07/23/16 16:10 Temperature 37.0 C Heart Rate [ 74 Brachial] Respiratory 16 Rate Blood Pressure 117/74 [Left Brachial artery] Blood Pressure [Right Brachial artery] O2 Saturation 97 Oxygen O2 Source Room air I&O (Last 24 Hrs): Intake and Output Totals x24h 07/21/16 07/22/16 07/23/16 23:59 23:59 23:59 Intake Total 870 2423 1413 Output Total 1200 Balance 870 1223 1413 General: Alert, Oriented x3, Cooperative, No acute distress HEENT: Atraumatic, PERRLA, EOMI, Mucous membr. moist/pink Neck: Supple, No JVD, No thyromegaly, +2 carotid pulse wo bruit, No LAD Lymphatic: no adenopathy Neuro: Alert, Non Focal, CN 2-12 Grossly Intact, Oriented Times 3 Cardiovascular: Regular rate, Normal S1, Normal S2, No murmurs Respiratory: Chest non-tender, No respiratory distress, Breath sounds nml Abdomen: Normal bowel sounds, Soft, No tenderness, No hepatospenomegaly, No masses Extremities: No clubbing, No cyanosis, Normal pulses, Other (Left LE swollen, red and warm) Comments/Notes: Tenderness, swelling, warmth of LLE. - Results Results: Laboratory Results WBC 7.9 x10^3/uL (4.8-10.8) 07/23/16 08:35 RBC 4.08 10^6/uL (4.70-6.10) L 07/23/16 08:35 Hgb 12.4 g/dL (14.0-18.0) L 07/23/16 08:35 Hct 36.2 % (42.0-52.0) L 07/23/16 08:35 MCV 88.8 fL (80.0-94.0) 07/23/16 08:35 MCH 30.5 pg (27.0-31.0) 07/23/16 08:35 MCHC 34.3 g/dL (32.0-36.0) 07/23/16 08:35 RDW 13.0 % (12.0-15.0) 07/23/16 08:35 Plt Count 229 10^3/uL (130-450) 07/23/16 08:35 MPV 7.3 fL (7.4-11.4) L 07/23/16 08:35 Neut # 6.0 10^3/uL (1.5-6.6) 07/23/16 08:35 Lymph # 0.8 10^3/uL (1.5-3.5) L 07/23/16 08:35 [place] # 0.7 10^3/uL (0.0-1.0) 07/23/16 08:35 Eos # 0.2 10^3/uL (0.0-0.7) 07/23/16 08:35 Baso # 0.1 10^3/uL (0.0-0.1) 07/23/16 08:35 Absolute Nucleated RBC 0.00 x10^3/uL 07/23/16 08:35 Nucleated RBCs 0.0 /100WBC 07/23/16 08:35 Manual Slide Review Indicated 07/23/16 08:35 RBC Morph Micro Appear 1+ ANISOCYTOSIS (NORMAL) 07/23/16 08:35 Sodium 138 mmol/L (135-145) 07/23/16 08:35 Potassium 3.7 mmol/L (3.5-5.0) 07/23/16 08:35 Chloride 101 mmol/L (101-111) 07/23/16 08:35 Carbon Dioxide 28 mmol/L (21-32) 07/23/16 08:35 Anion Gap 9.0 (6-13) 07/23/16 08:35 BUN 12 mg/dL (6-20) 07/23/16 08:35 Creatinine 0.9 mg/dL (0.6-1.2) 07/23/16 08:35 Estimated GFR (MDRD) 84 (>89) L 07/23/16 08:35 Glucose 101 mg/dL (70-100) H 07/23/16 08:35 Calcium 9.0 mg/dL (8.5-10.3) 07/23/16 08:35 Ionized Calcium NO 07/23/16 08:35 Total Bilirubin 1.3 mg/dL (0.2-1.0) H 07/23/16 08:35 AST 15 IU/L (10-42) 07/23/16 08:35 ALT 11 IU/L (10-60) 07/23/16 08:35 Alkaline Phosphatase 49 IU/L (42-121) 07/23/16 08:35 Total Protein 7.0 g/dL (6.7-8.2) 07/23/16 08:35 Albumin 3.3 g/dL (3.2-5.5) 07/23/16 08:35 Globulin 3.7 g/dL (2.1-4.2) 07/23/16 08:35 Albumin/Globulin Ratio 0.9 (1.0-2.2) L 07/23/16 08:35 Last Dose Date UNKNOWN 07/23/16 11:29 Last Dose Time UNKNOWN 07/23/16 11:29 Vancomycin Trough 19.0 ug/mL (5.0-15.0) H 07/23/16 11:29 - Procedures Procedures: Procedures INSPECTION OF LOWER INTESTINAL TRACT, ENDO (04/01/16) REPOSITION LEFT TIBIA WITH INT FIX, OPEN APPROACH (06/07/16)
[2016-07-23] MEDS: D5.45NS W/20 MEQ KCL 1,000 ML IV SCH (21:33)
[2016-07-24] MEDS: VANCOMYCIN INJ 1 GM, VANCOMYCIN INJ 250 MG in SODIUM CHLORIDE 0.9% 250 ML IV SCH ×2 (02:51→14:04)
[2016-07-24] MEDS: PIPERACILLIN/TAZOBACTAM 4.5 GM in SODIUM CHLORIDE 0.9% MINIBAG 100 ML IV SCH ×3 (04:41→17:24)
[2016-07-24] MEDS: SODIUM CHLORIDE FLUSH 0.9% 10 ML SYRINGE IVP SCH ×2 (05:37→13:34)
[2016-07-24 05:56] LABS: BASOPHILS # (AUTO) 0.1 10^3/uL (0.0-0.1); BASOPHILS % (AUTO) 1.2 %; EOSINOPHILS # (AUTO) 0.3 10^3/uL (0.0-0.7); EOSINOPHILS % (AUTO) 4.5 %; HCT - HEMATOCRIT 37.4 % (42.0-52.0); HGB - HEMOGLOBIN 12.8 g/dL (14.0-18.0); LYMPHOCYTES # (AUTO) 1.2 10^3/uL (1.5-3.5); LYMPHOCYTES % (AUTO) 15.7 %; MEAN CORPUSCULAR HEMOGLOBIN 30.8 pg (27.0-31.0); MEAN CORPUSCULAR HGB CONC 34.3 g/dL (32.0-36.0); MEAN CORPUSCULAR VOLUME 89.9 fL (80.0-94.0); MEAN PLATELET VOLUME 7.4 fL (7.4-11.4); MONOCYTES # (AUTO) 0.8 10^3/uL (0.0-1.0); MONOCYTES % (AUTO) 9.7 %; NEUTROPHILS # (AUTO) 5.3 10^3/uL (1.5-6.6); NEUTROPHILS % (AUTO) 68.9 %; RED BLOOD COUNT 4.16 10^6/uL (4.70-6.10); UNCORRECTED WHITE BLOOD COUNT 7.7 x10^3/uL; WHITE BLOOD COUNT 7.7 x10^3/uL (4.8-10.8)
[2016-07-24 06:08] LABS: ALBUMIN/GLOBULIN RATIO 0.9 (1.0-2.2); BILIRUBIN,TOTAL 1.1 mg/dL (0.2-1.0); BUN - BLOOD UREA NITROGEN 11 mg/dL (6-20); CARBON DIOXIDE - CO2 28 mmol/L (21-32); CHLORIDE 102 mmol/L (101-111); CREATININE 0.7 mg/dL (0.6-1.2); GFR - MDRD 112 (>89); GLUCOSE 100 mg/dL (70-100); POTASSIUM 3.3 mmol/L (3.5-5.0); SODIUM 140 mmol/L (135-145); TOTAL PROTEIN 7.2 g/dL (6.7-8.2)
[2016-07-24] MEDS: LOSARTAN 50 MG TABLET PO SCH (10:06)
[2016-07-24] MEDS: hydroCHLOROthiazide 25 MG TABLET PO SCH (10:07)
[2016-07-24] MEDS: amLODIPine 5 MG TABLET PO SCH (10:07)
--- NOTE | 2016-07-24 17:17 | PROVIDER PROGRESS NOTE ---
Subjective - Prog Note Date Prog Note Date: 07/24/16 Prog Note Time: 17:15 - Subjective Pt reports feeling: Improved Subjective: Patient has remained afebrile and WBCs have normalized. He feels well. He states that pain, redness, and swelling have all improved. Objective - Vital Signs/Intake & Output Reviewed Vital Signs: Yes Vital Signs: Vital Signs x48h Temp Pulse Resp BP Pulse Ox 07/24/16 16:15 37.2 C 75 18 121/71 94 Intake & Output: Intake & Output 07/21/16 07/22/16 07/23/16 07/24/16 23:59 23:59 23:59 23:59 Intake Total 870 2423 2519 830 Output Total 1200 Balance 870 1223 2519 830 - Objective General Appearance: positive: No acute distress, Alert Eyes Bilateral: positive: Normal inspection ENT: positive: ENT inspection nml Neck: positive: Nml inspection Respiratory: positive: No respiratory distress, Breath sounds nml Cardiovascular: positive: Regular rate & rhythm Peripheral Pulses: 2+ Dorsalis pedis (R), 2+ Dorsalis pedis (L), 2+ Posterior tibialis (R), 2+ Posterior tibialis (L) Abdomen: positive: Non-tender, Nml bowel sounds, No distention. negative: Guarding Back: positive: Nml inspection Skin: positive: Color nml, No rash, Warm, Dry, Other (Erythema over Left ankle has reduced. Now 7 cm x 30 cm. No fluctuance.) Extremities: positive: Non-tender. negative: Calf tenderness, Yunior's sign/ cords Neurologic/Psychiatric: positive: Oriented x3, Motor nml, Sensation nml, Mood/ affect nml - Lab Results Fish Bones: 07/24/16 05:39 07/24/16 05:39 Other Labs: Lab Results x24hrs 07/24/16 07/24/16 Range/Units 05:39 05:39 WBC 7.7 (4.8-10.8) x10^3/uL RBC 4.16 L (4.70-6.10) 10^6/uL Hgb 12.8 L (14.0-18.0) g/dL Hct 37.4 L (42.0-52.0) % MCV 89.9 (80.0-94.0) fL MCH 30.8 (27.0-31.0) pg MCHC 34.3 (32.0-36.0) g/dL RDW 13.0 (12.0-15.0) % Plt Count 252 (130-450) 10^3/uL MPV 7.4 (7.4-11.4) fL Neut # 5.3 (1.5-6.6) 10^3/uL Lymph # 1.2 L (1.5-3.5) 10^3/uL [place] # 0.8 (0.0-1.0) 10^3/uL Eos # 0.3 (0.0-0.7) 10^3/uL Baso # 0.1 (0.0-0.1) 10^3/uL Absolute Nucleated RBC 0.00 x10^3/uL Nucleated RBCs 0.0 /100WBC Sodium 140 (135-145) mmol/L Potassium 3.3 L (3.5-5.0) mmol/L Chloride 102 (101-111) mmol/L Carbon Dioxide 28 (21-32) mmol/L Anion Gap 10.0 (6-13) BUN 11 (6-20) mg/dL Creatinine 0.7 (0.6-1.2) mg/dL Estimated GFR (MDRD) 112 (>89) Glucose 100 (70-100) mg/dL Calcium 9.0 (8.5-10.3) mg/dL Ionized Calcium NO Total Bilirubin 1.1 H (0.2-1.0) mg/dL AST 14 (10-42) IU/L ALT 12 (10-60) IU/L Alkaline Phosphatase 46 (42-121) IU/L Total Protein 7.2 (6.7-8.2) g/dL Albumin 3.4 (3.2-5.5) g/dL Globulin 3.8 (2.1-4.2) g/dL Albumin/Globulin Ratio 0.9 L (1.0-2.2) Assessment/Plan - Problem List (1) Cellulitis of left anterior lower leg Impression: Improving. PLAN: 1. Discharge to home. 2. Oral Clindamycin and Bactrim DS. 3. Follow up on Friday at [facility], for leg check.
--- NOTE | 2016-07-24 17:28 | Discharge Plan ---
Discharge Plan Disposition: 01 Home, Self Care Condition: Good Prescriptions: traMADol [Ultram] 50 mg PO Q4HR PRN #60 tablet PRN Reason: Breakthrough Pain Diet: Regular Activity Restrictions: Touchdown weightbearing Shower Restrictions: No Driving Restrictions: No Assistance Devices: Crutches Weight Bearing: Toe Touch Additional Instructions or Follow Up instructions: Stop the bactrim - it is affecting your kidneys and potassium levels - the levels are not dangerous now but there was a change from your baseline values and I don't think it is safe to continue that medication nor do i recommend you take it in the future No Smoking: If you smoke, Please STOP! Call for help.
--- NOTE | 2016-07-24 17:42 | PROVIDER PROGRESS NOTE ---
Assessment/Plan - Problem List (1) Cellulitis of left anterior lower leg Assessment/Plan: present on admission failed outpt management Day #4 zosyn and vancomycin after failed ancef/vancomycin No fevers and WBC stable Ortho following and feel patient is stable enough to discharge home and will have him follow in clinic on Friday or Friday Patient being discharged home on PO clinda and doxycycline (2) Post op infection Impression: s/p ORIF 06/11/16 of left leg. 24 hours of redness and swelling on 07/17/16 Possible infected hardware although it appears to just be a cellulitis Ortho following Qualifiers: Encounter type: subsequent encounter Qualified Code(s): T81.4XXD - Infection following a procedure, subsequent encounter (3) HTN (hypertension) Impression: On his usual norvasc, HCTZ and cozaar switched for micardis. controlled no change. - Current Meds Current Meds: Current Medications Generic Name Dose Route Start Last Admin Trade Name Freq PRN Reason Stop Dose Admin Acetaminophen/Hydrocodone Bitart 1 tab 07/21/16 14:01 07/23/16 23:37 Gully 5/325 PO 1 tab Q4HR PRN Administration Breakthrough Pain Amlodipine Besylate 10 mg 07/22/16 09:00 07/24/16 10:07 Norvasc PO 10 mg DAILY SANJEEV Administration Hydrochlorothiazide 25 mg 07/22/16 09:00 07/24/16 10:07 Hydrodiuril PO 25 mg DAILY SANJEEV Administration Potassium Chloride/Dextrose/Sod Cl 1,000 mls @ 0 mls/hr 07/21/16 14:00 21:33 D5.45ns W/20 Meq Kcl IV 30 mls/hr .Q0M SANJEEV Administration TKO Piperacillin Sod/Tazobactam 100 mls @ 200 mls/hr 07/21/16 16:00 07/24/16 17:24 Sod 4.5 gm/ Sodium Chloride IV 200 mls/hr Q6H SANJEEV Administration Vancomycin HCl 1 gm/ 250 mls @ 167 mls/hr 07/23/16 14:00 07/24/16 14:04 Vancomycin HCl 250 mg/ Sodium IV 167 mls/hr Chloride Q12H SANJEEV Administration Losartan Potassium 100 mg 07/22/16 09:00 07/24/16 10:06 Cozaar PO 100 mg DAILY SANJEEV Administration Sodium Chloride 10 ml 07/21/16 14:00 07/24/16 13:34 Normal Saline Flush 0.9% IVP Not Given Q8HR SANJEEV Tramadol HCl 50 mg 07/21/16 14:01 07/22/16 16:29 Ultram PO 50 mg Q4HR PRN Administration Breakthrough Pain - Lab Result Lab results reviewed: Yes Fish Bone Diagrams: 07/24/16 05:39 07/24/16 05:39 - EKG Results EKG Interpreted Independently: Yes - Diagnostic Imaging Results Diagnostic Imaging Results: positive: Final report reviewed - Additional Planning Condition/Complexity: Improved Consult/Specialty: Other (Ortho) Plan Discussed with:: Patient Time Spent: 31-60 minutes Subjective - Subjective Patient Reports: Feeling Better (Still has pain in the left leg but states that he feels the swelling is down. No fevers overnight. Would like to go home. Eating well.) Nursing Reports: No Complaints Objective Vital Signs: Vital Signs - 24 hr 07/23/16 07/24/16 07/24/16 20:21 00:55 09:07 Temperature 36.8 C 36.9 C 36.2 C L Heart Rate [ 77 72 76 Brachial] Respiratory 16 16 16 Rate Blood Pressure 121/69 121/69 124/76 [Left Brachial artery] O2 Saturation 96 94 94 07/24/16 16:15 Temperature 37.2 C Heart Rate [ 75 Brachial] Respiratory 18 Rate Blood Pressure 121/71 [Left Brachial artery] O2 Saturation 94 Oxygen O2 Source Room air I&O (Last 24 Hrs): Intake and Output Totals x24h 07/22/16 07/23/16 07/24/16 23:59 23:59 23:59 Intake Total 2423 2519 830 Output Total 1200 Balance 1223 2519 830 General: Alert, Oriented x3, Cooperative, No acute distress HEENT: Atraumatic, PERRLA, EOMI, Mucous membr. moist/pink, Other Neck: Supple, No JVD, No thyromegaly, +2 carotid pulse wo bruit, No LAD Lymphatic: no adenopathy Neuro: Alert, Non Focal, CN 2-12 Grossly Intact, Oriented Times 3 Cardiovascular: Regular rate, Normal S1, Normal S2, No murmurs Respiratory: Chest non-tender, No respiratory distress, Breath sounds nml Abdomen: Normal bowel sounds, Soft, No tenderness, No hepatospenomegaly Extremities: No clubbing, No cyanosis, Normal pulses, Other (Left LE swelling, erythema and tenderness to palpation.) Skin: No rashes Comments/Notes: Left LE swelling, tenderness, erythema. - Results Results: Laboratory Results WBC 7.7 x10^3/uL (4.8-10.8) 07/24/16 05:39 RBC 4.16 10^6/uL (4.70-6.10) L 07/24/16 05:39 Hgb 12.8 g/dL (14.0-18.0) L 07/24/16 05:39 Hct 37.4 % (42.0-52.0) L 07/24/16 05:39 MCV 89.9 fL (80.0-94.0) 07/24/16 05:39 MCH 30.8 pg (27.0-31.0) 07/24/16 05:39 MCHC 34.3 g/dL (32.0-36.0) 07/24/16 05:39 RDW 13.0 % (12.0-15.0) 07/24/16 05:39 Plt Count 252 10^3/uL (130-450) 07/24/16 05:39 MPV 7.4 fL (7.4-11.4) 07/24/16 05:39 Neut # 5.3 10^3/uL (1.5-6.6) 07/24/16 05:39 Lymph # 1.2 10^3/uL (1.5-3.5) L 07/24/16 05:39 [place] # 0.8 10^3/uL (0.0-1.0) 07/24/16 05:39 Eos # 0.3 10^3/uL (0.0-0.7) 07/24/16 05:39 Baso # 0.1 10^3/uL (0.0-0.1) 07/24/16 05:39 Absolute Nucleated RBC 0.00 x10^3/uL 07/24/16 05:39 Nucleated RBCs 0.0 /100WBC 07/24/16 05:39 Manual Slide Review Indicated 07/23/16 08:35 RBC Morph Micro Appear 1+ ANISOCYTOSIS (NORMAL) 07/23/16 08:35 Sodium 140 mmol/L (135-145) 07/24/16 05:39 Potassium 3.3 mmol/L (3.5-5.0) L 07/24/16 05:39 Chloride 102 mmol/L (101-111) 07/24/16 05:39 Carbon Dioxide 28 mmol/L (21-32) 07/24/16 05:39 Anion Gap 10.0 (6-13) 07/24/16 05:39 BUN 11 mg/dL (6-20) 07/24/16 05:39 Creatinine 0.7 mg/dL (0.6-1.2) 07/24/16 05:39 Estimated GFR (MDRD) 112 (>89) 07/24/16 05:39 Glucose 100 mg/dL (70-100) 07/24/16 05:39 Calcium 9.0 mg/dL (8.5-10.3) 07/24/16 05:39 Ionized Calcium NO 07/24/16 05:39 Total Bilirubin 1.1 mg/dL (0.2-1.0) H 07/24/16 05:39 AST 14 IU/L (10-42) 07/24/16 05:39 ALT 12 IU/L (10-60) 07/24/16 05:39 Alkaline Phosphatase 46 IU/L (42-121) 07/24/16 05:39 Total Protein 7.2 g/dL (6.7-8.2) 07/24/16 05:39 Albumin 3.4 g/dL (3.2-5.5) 07/24/16 05:39 Globulin 3.8 g/dL (2.1-4.2) 07/24/16 05:39 Albumin/Globulin Ratio 0.9 (1.0-2.2) L 07/24/16 05:39 Last Dose Date UNKNOWN 07/23/16 11:29 Last Dose Time UNKNOWN 07/23/16 11:29 Vancomycin Trough 19.0 ug/mL (5.0-15.0) H 07/23/16 11:29 - Procedures Procedures: Procedures INSPECTION OF LOWER INTESTINAL TRACT, ENDO (04/01/16) REPOSITION LEFT TIBIA WITH INT FIX, OPEN APPROACH (06/07/16)
[2016-07-24 18:38] VITALS: BP 143/82
--- NOTE | 2016-08-26 19:59 | DISCHARGE SUMMARY ---
DATE OF ADMISSION: 07/21/2016 DATE OF DISCHARGE: 07/24/2016 CONDITION ON DISCHARGE: Good. FINAL DIAGNOSES: 1. Cellulitis of left lower extremity. 2. Left distal tibia and fibula fracture. 3. Hypertension. 4. Postoperative infection. PROCEDURES: None. HISTORY OF PRESENT ILLNESS: This is an otherwise very healthy 70-year-old male who had a history of a spiral fracture of his left distal tibia involving the fibula proximally when he tripped over a kassy ler hitch and became wedged on the trailer. He was taken to the operating room on 06/07/2016 where he underwent a minimally invasive percutaneous osteosynthesis of the left tibia with a medial tibial lo cking plate (Agueda). He had done well following his surgery up until about 5 days prior to this admi ssion when he presented to the emergency room with acute swelling and redness over his left lower ext remity. He was subsequently seen in clinic and noted to have increasing redness and was elected to ad ximena him to the hospital for IV antibiotic treatment and closer monitoring of the wound, suspecting th at we might have to bring him back to the operating room. LABORATORY: His final CBC 07/24/2016 showed a WBC of 7.7, hemoglobin 12.8, hematocrit 37.4, platelet count of 252,000, neutrophils 5.3, lymphocytes 1.2, monocytes 0.8, eosinophils 0.3 and basophils 0.1. Chemistries 07/24/2016: Sodium 140, potassium 3.3, chloride 102, CO2 28, BUN 11, creatinine 0.7, glu cose 100, calcium 9.0. There were no pertinent microbiology labs. HOSPITAL COURSE: The patient was started on a course of IV antibiotics and remained afebrile with no other signs or symptoms of infection and gradually resolving erythema and swelling to the left lower extremity. Based on the absence of fluctuance and no other signs of infection we elected to convert h im to oral antibiotics for discharge. DISCHARGE MEDICATIONS: 1. ASA 81 mg p.o. daily. 2. Telmisartan 80 mg p.o. daily. 3. Hydrochlorothiazide 25 mg p.o. daily. 4. Amlodipine 5 mg tablet 2 tablets p.o. daily. 5. Acetaminophen 325 mg 2 tablets p.o. q. 6 hrs p.r.n. pain. 6. Tramadol 50 mg p.o. q. 4 hours p.r.n. pain. 7. Clindamycin 150 mg capsules, 2 capsules p.o. q. 6 hours x14 days. 8. Doxycycline monohydrate 100 mg tablets p.o. b.i.d. x14 days. DISCHARGE INSTRUCTIONS: The patient was discharged to home on a regular diet. He is to be touch-down weight bearing to his left lower extremity with crutches or walker for ambulation. [facility] to [facility] 1 week for a repeat evaluation of his left lower extremity. He was instructed to return to the emergency room immediately if he develops fevers, chills, sweats, or oth er constitutional symptoms. CODE STATUS; FULL CODE. JOB #: [id number] EXT JOB #:[id number]
== END 2016-07-24 18:38 | disposition home or self-care (01) | DRG 863 ==
LOC: ED 09:19 → MS 13:42
PROVIDERS: ADMIT Orthopaedic Surgery; ATTEND Orthopaedic Surgery
DX: T81.4XXA Infection following a procedure, initial encounter (principal); L03.116 Cellulitis of left lower limb; S82.242D Displaced spiral fracture of shaft of left tibia, subsequent encounter for closed fracture with routine healing; R79.9 Abnormal finding of blood chemistry, unspecified; S82.202D Unspecified fracture of shaft of left tibia, subsequent encounter for closed fracture with routine healing; S82.832D Other fracture of upper and lower end of left fibula, subsequent encounter for closed fracture with routine healing; Y83.8 Other surgical procedures as the cause of abnormal reaction of the patient, or of later complication, without mention of misadventure at the time of the procedure; Z79.899 Other long term (current) drug therapy; I10 Essential (primary) hypertension; B35.1 Tinea unguium; E78.00 Pure hypercholesterolemia, unspecified; Z96.649 Presence of unspecified artificial hip joint; Z79.82 Long term (current) use of aspirin; Z87.891 Personal history of nicotine dependence
CPT/HCPCS: 36415; 80048; 80053; 82565; 84132; 85025; 96365; 96375; 99282; 99283; 99284

== ENCOUNTER 2016-08-06 09:01 | Outpatient (CLI) | payer MEDICARE, OTHER ==
[2016-08-06 09:41] LABS: BASOPHILS # (AUTO) 0.1 10^3/uL (0.0-0.1); BASOPHILS % (AUTO) 0.9 %; EOSINOPHILS # (AUTO) 0.1 10^3/uL (0.0-0.7); EOSINOPHILS % (AUTO) 1.8 %; HGB - HEMOGLOBIN 12.9 g/dL (14.0-18.0); LYMPHOCYTES # (AUTO) 1.5 10^3/uL (1.5-3.5); LYMPHOCYTES % (AUTO) 19.2 %; MEAN CORPUSCULAR HEMOGLOBIN 29.7 pg (27.0-31.0); MEAN CORPUSCULAR HGB CONC 33.9 g/dL (32.0-36.0); MEAN CORPUSCULAR VOLUME 87.7 fL (80.0-94.0); MEAN PLATELET VOLUME 6.9 fL (7.4-11.4); MONOCYTES # (AUTO) 0.7 10^3/uL (0.0-1.0); MONOCYTES % (AUTO) 9.1 %; NEUTROPHILS # (AUTO) 5.4 10^3/uL (1.5-6.6); RED BLOOD COUNT 4.33 10^6/uL (4.70-6.10); RED CELL DISTRIBUTION WIDTH 13.3 % (12.0-15.0); UNCORRECTED WHITE BLOOD COUNT 7.8 x10^3/uL; WHITE BLOOD COUNT 7.8 x10^3/uL (4.8-10.8)
== END 2016-08-06 09:02 | disposition home or self-care (01) ==
LOC: LAB 09:01
PROVIDERS: ATTEND Orthopaedic Surgery
DX: L03.116 Cellulitis of left lower limb (principal); Z48.89 Encounter for other specified surgical aftercare; S82.392D Other fracture of lower end of left tibia, subsequent encounter for closed fracture with routine healing; W01.0XXD Fall on same level from slipping, tripping and stumbling without subsequent striking against object, subsequent encounter; Z79.899 Other long term (current) drug therapy
CPT/HCPCS: 36415; 85025; 85651; 86140

== ENCOUNTER 2019-11-11 08:00 | Outpatient (CLI) | payer MEDICARE, OTHER | END 2019-11-11 23:59 | disposition home or self-care (01) | LOC: LAB.WCP 08:00 | PROVIDERS: ATTEND Family Medicine | DX: N40.0 Benign prostatic hyperplasia without lower urinary tract symptoms (principal) | CPT/HCPCS: 36415; 84153 ==

== ENCOUNTER 2020-02-29 08:00 | Outpatient (CLI) | payer MEDICARE, OTHER ==
[2020-02-29 13:25] LABS: BASOPHILS % (AUTO) 1.1 %; EOSINOPHILS % (AUTO) 3.6 %; HGB - HEMOGLOBIN 13.7 g/dL (14.0-18.0); LYMPHOCYTES % (AUTO) 31.2 %; MEAN CORPUSCULAR HEMOGLOBIN 31.9 pg (27.0-31.0); MEAN CORPUSCULAR HGB CONC 32.5 g/dL (32.0-36.0); MEAN CORPUSCULAR VOLUME 98.1 fL (80.0-94.0); MEAN PLATELET VOLUME 10.9 fL (7.4-11.4); MONOCYTES % (AUTO) 9.3 %; NEUTROPHILS % (AUTO) 54.4 %; PLT - PLATELET COUNT 180 10^3/uL (130-450); RED BLOOD COUNT 4.29 10^6/uL (4.70-6.10); RED CELL DISTRIBUTION WIDTH 12.1 % (12.0-15.0); WHITE BLOOD COUNT 2.8 x10^3/uL (4.8-10.8)
[2020-02-29 13:38] LABS: ABNORMAL LYMPHS % (MANUAL) 0 %
[2020-02-29 13:40] LABS: ALBUMIN 4.3 g/dL (3.2-5.5); ALBUMIN/GLOBULIN RATIO 1.5 (1.0-2.2); ALKALINE PHOSPHATASE 66 IU/L (42-121); ALT ALANINE AMINOTRANSFERASE 19 IU/L (10-60); AST ASPARTATE AMINOTRANSFERASE 22 IU/L (10-42); BILIRUBIN,TOTAL 1.5 mg/dL (0.2-1.0); BUN - BLOOD UREA NITROGEN 10 mg/dL (6-20); CALCIUM 8.7 mg/dL (8.5-10.3); CARBON DIOXIDE - CO2 30 mmol/L (21-32); CHLORIDE 102 mmol/L (101-111); CHOL/HDL RATIO 2.6 (<5.0); CHOLESTEROL 162 mg/dL; CREATININE 0.7 mg/dL (0.6-1.2); GLUCOSE 93 mg/dL (70-100); HDL CHOLESTEROL 62 mg/dL; LDL CHOLESTEROL,CALCULATED 87 mg/dL; LDL/HDL RATIO 1.4 (<3.6); TOTAL PROTEIN 7.1 g/dL (6.7-8.2); VLDL CHOLESTEROL 13 mg/dL
[2020-02-29 14:14] LABS: BAND NEUTROPHILS % (MANUAL) 2 %; BASOPHILS # (MANUAL) 0.1 10^3/uL (0-0.1); BASOPHILS % (MANUAL) 3 %; EOSINOPHILS # (MANUAL) 0.1 10^3/uL (0-0.7); LYMPHOCYTES # (MANUAL) 1.1 10^3/uL (1.5-3.5); LYMPHOCYTES % (MANUAL) 40 %; MONOCYTES # (MANUAL) 0.3 10^3/uL (0.0-1.0)
[2020-02-29 14:15] LABS: DIFFERENTIAL COMMENT MANUAL DIFFERENTIAL; PLATELET ESTIMATE, MANUAL NORMAL (130-450,000) (NORMAL); PLATELET MORPHOLOGY NORMAL APPEARANCE (NORMAL); RBC MORPHOLOGY (MULTIPLE) NORMAL APPEARANCE (NORMAL)
== END 2020-02-29 23:59 | disposition home or self-care (01) ==
LOC: LAB.WCP 08:00
PROVIDERS: ATTEND Nurse Practitioner
DX: Z00.00 Encounter for general adult medical examination without abnormal findings (principal); I10 Essential (primary) hypertension; N40.0 Benign prostatic hyperplasia without lower urinary tract symptoms; K21.9 Gastro-esophageal reflux disease without esophagitis; E78.5 Hyperlipidemia, unspecified
CPT/HCPCS: 36415; 80053; 80061; 83721; 84443; 85025

== ENCOUNTER 2020-03-02 08:00 | Outpatient (CLI) | payer MEDICARE, OTHER ==
[2020-03-02 18:40] LABS: INR 1.1 (0.8-1.2); PT - PROTHROMBIN TIME 12.7 secs (9.9-12.6)
[2020-03-02 18:46] LABS: ABSOLUTE RETICS # AUTO 0.039 10^6/uL (0.020-0.110); EOSINOPHILS # (AUTO) 0.1 10^3/uL (0.0-0.7); EOSINOPHILS % (AUTO) 1.5 %; HGB - HEMOGLOBIN 13.8 g/dL (14.0-18.0); LYMPHOCYTES # (AUTO) 0.9 10^3/uL (1.5-3.5); LYMPHOCYTES % (AUTO) 21.5 %; MEAN CORPUSCULAR HEMOGLOBIN 32.9 pg (27.0-31.0); MEAN CORPUSCULAR HGB CONC 33.3 g/dL (32.0-36.0); MEAN CORPUSCULAR VOLUME 98.8 fL (80.0-94.0); MEAN PLATELET VOLUME 11.5 fL (7.4-11.4); MONOCYTES # (AUTO) 0.3 10^3/uL (0.0-1.0); MONOCYTES % (AUTO) 7.6 %; NEUTROPHILS # (AUTO) 2.8 10^3/uL (1.5-6.6); NEUTROPHILS % (AUTO) 68.4 %; PLT - PLATELET COUNT 189 10^3/uL (130-450); RED BLOOD COUNT 4.19 10^6/uL (4.70-6.10); RED CELL DISTRIBUTION WIDTH 12.2 % (12.0-15.0); WHITE BLOOD COUNT 4.1 x10^3/uL (4.8-10.8)
[2020-03-02 19:01] LABS: PARTIAL THROMBOPLASTIN TIME 31.6 secs (24.9-33.3)
[2020-03-02 19:23] LABS: FOLATE 8.18 ng/mL (5.90 - >24.8)
== END 2020-03-02 23:59 | disposition home or self-care (01) ==
LOC: LAB.WCP 08:00
PROVIDERS: ATTEND Nurse Practitioner
DX: D64.9 Anemia, unspecified (principal); D72.819 Decreased white blood cell count, unspecified
CPT/HCPCS: 36415; 82607; 82746; 85025; 85045; 85610; 85730